=== PATIENT | male | born 1955 | race Caucasian/White ===

== ENCOUNTER → 2022-04-07 | Outpatient (CLI) | payer MEDICARE, OTHER, SELFPAY ==
--- NOTE | 2022-04-07 07:51 | CT_ITS ---
STUDY: CT CHEST WITHOUT CONTRAST REASON FOR EXAM: Male, 66 years old. MALIGNANT CARCINOID TUMOR RADIATION DOSAGE (If Supplied By Facility): CTDIvol = ( 18.6 ) mGy, DLP = ( 761.39 ) mGycm TECHNIQUE: Transaxial imaging was performed without the administration of intravenous contrast material. Multiplanar coronal and sagittal images were reformatted. Individualized dose optimization techniques were used for this CT. COMPARISON: Comparison is made with prior outside examination 10/09/2021. FINDINGS: CHEST Mildly enlarged right lobe of the thyroid with heterogeneous appearance. This is unchanged. Focal calcification in the anterior aspect of the left lobe. Slight progression in the moderate size right pleural effusion as compared to prior study. The previously seen soft tissue mass in the anterior medial aspect of the right middle lobe presently measures 4.7 cm x 2.2 cm. There is a 2.8 cm x 1.9 cm nodule in the anterior aspect of the right middle lobe. This has increased in size as compared to prior study. There is a 3.5 cm x 4.3 cm mass in the peripheral lateral aspect of the right lower lobe. This is essentially unchanged. Spiculated nodule in the posterior aspect of the left upper lobe now measures 1.3 cm x 1 cm. There are calcifications of the coronary arteries. Normal mediastinum. Normal hilar regions. Normal unenhanced pulmonary arteries. Normal aorta arch and descending thoracic aorta. There are multi-level degenerative changes of the thoracic spine. Status post cholecystectomy. CT/Chest without Contrast IMPRESSION: Progressive right pleural effusion. Masses in the right lung as described. Focal nodule in the lingular segment of the left upper lobe. Electronically Signed: Han Sow MD at 15:29 EDT ,
== END | disposition home or self-care (01) ==
PROVIDERS: PCP Nurse Practitioner Primary Care
DX: C7A.090 Malignant carcinoid tumor of the bronchus and lung (principal)
CPT/HCPCS: 71250

== ENCOUNTER → 2022-04-17 | Outpatient (CLI) | payer MEDICARE, OTHER, SELFPAY ==
--- NOTE | 2022-04-17 16:00 | MRI_ITS ---
STUDY: MRI ABDOMEN WITHOUT CONTRAST REASON FOR EXAM: Male, 66 years old. 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 COMPARISON: None. FINDINGS: Multiple lung masses, better characterized on recent chest CT dated 04/07/2022. Small right pleural effusion. The visualized portions of the heart are within normal limits. Normal liver. There are surgical clips in the gallbladder fossa consistent with a prior cholecystectomy. Normal spleen. Normal pancreas. Normal bilateral adrenal glands. Normal right kidney. Normal left kidney. Normal visualized stomach. Normal small intestine. Normal colon. There is diffuse atherosclerotic calcification of the abdominal aorta, without a demonstrated aneurysm. Normal inferior vena cava. Normal retroperitoneum. Normal abdominal wall. There are diffuse degenerative changes of the visualized lumbar spine. MRI/Abdomen without Contrast IMPRESSION: No abnormalities in the abdomen. Multiple lung masses and right pleural effusion, better characterized on recent chest CT dated 04/07/2022. Electronically Signed: Valentino Dozier MD at 17:46 EDT ,
--- NOTE | 2022-04-17 16:45 | MRI_ITS ---
STUDY: MR PELVIS WITHOUT CONTRAST REASON FOR EXAM: Male, 66 years old. 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 COMPARISON: None. FINDINGS: Large right inguinal hernia containing several small bowel loops without strangulation as well as fat and fluid. Otherwise normal visualized small intestine. Normal visualized colon. Benign prostatic hyperplasia. Otherwise normal visualized prostate gland. Normal urinary bladder. There is no pelvic fluid. There is no pelvic mass lesion or lymphadenopathy. There is diffuse atherosclerotic calcification of the pelvic arteries. There are diffuse degenerative changes of the visualized lumbar spine. Normal abdominal wall. MRI/Pelvis (Routine) IMPRESSION: No evidence of metastatic disease in the pelvis. Large right inguinal hernia containing several small bowel loops without strangulation. Benign prostatic hyperplasia. Electronically Signed: Valentino Dozier MD at 19:02 EDT ,
--- NOTE | 2022-04-17 17:30 | MRI_ITS ---
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 COMPARISON: None. FINDINGS: NASOPHARYNX: Unremarkable. SUPRAHYOID NECK: Unremarkable oropharynx, oral cavity, parapharyngeal space, and retropharyngeal space. INFRAHYOID NECK: Unremarkable larynx, hypopharynx, and supraglottis. THYROID: Nonspecific nodule in the right thyroid lobe measures 1 cm most likely represent a benign lesion. SALIVARY GLANDS: Unremarkable. LYMPH NODES: No cervical or supraclavicular lymphadenopathy. VASCULAR STRUCTURES: Unremarkable. VISUALIZED PORTIONS OF THE ORBITS, PARANASAL SINUSES, MASTOID AIR CELLS AND SKULL BASE: Unremarkable. THORACIC INLET: Clear lung apices. CERVICAL SPINE: Unremarkable. Include Additional Portions As Necessary. Large right pleural effusion is noted. MRI/Orbit Face and Neck (Routine) IMPRESSION: Nonspecific nodule in the right thyroid lobe measures 1 cm most likely represent a benign lesion. Further evaluation by ultrasound be helpful. Electronically Signed: Alphonso Andrews MD at 4:08 EDT Reading Location ID and State: [facility] / [place] Tel , Service support ,
--- NOTE | 2022-04-17 17:30 | MRI_ITS ---
We are attempting to reach an attending provider to discuss findings. An addendum with communication details will be sent when the communication is complete. STUDY: MRI BRAIN WITHOUT CONTRAST REASON FOR EXAM: Male, 66 years old. Malignant carcinoid of lung. Pt has GFR of 17. Per request of patient and pt''s order clerk images done non contrast only TECHNIQUE: Standardized multiplanar fat and water weighted pulse sequences were obtained. COMPARISON: None. FINDINGS: Mild atrophy and periventricular white matter ischemic changes without mass effect or restricted diffusion. Normal bilateral basal ganglia. Normal thalami. There is no extra-axial fluid accumulation. Normal flow voids within the major intracranial circulation suggesting patency by spin echo criteria. There is a large parasellar mass filling the sella turcica extending cephalad with involvement of the infundibulum to the level of the optic chiasm. The mass also extends anteriorly along of the base of the skull in the anterior cranial fossa in the midline to the level of the sylvian cisterns. The mass measures approximately 2.4 x 3.85 x 2.9 cm. The lesion displaces the cavernous carotids bilaterally. Etiology is indeterminate. Meningioma, lymphoma, sarcoid or metastasis may be considered. Pituitary adenoma less likely. Repeat study with contrast would be helpful for more definitive evaluation as well as unenhanced CT for further assessment of the skull base. . Normal tectal plate and pineal gland. Normal midbrain, max and medulla. Normal cerebellum. Normal basal cisterns. Normal bilateral temporal bones. Normal bilateral internal auditory canals. No demonstrated orbital abnormality, within the constraints of a routine brain study. Mucous retention cyst within the right maxillary sinus and mild mucosal thickening of the ethmoid air cells. Normal calvarium and skull base. Normal visualized soft tissue structures. Normal visualized upper cervical spine. MRI/Brain without Contrast IMPRESSION: Mild atrophy and minor periventricular white matter ischemic changes without evidence for acute infarct. 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
[2022-04-18 08:02] LABS: CREATININE FINGERSTICK 3.81 mg/dL (0.70-1.30); EGFR FINGERSTICK 17 mL/min (>60)
== END | disposition home or self-care (01) ==
LOC: MRI 15:13
PROVIDERS: PCP Nurse Practitioner Primary Care
DX: C7A.090 Malignant carcinoid tumor of the bronchus and lung (principal)
CPT/HCPCS: 70540; 70551; 72195; 74181